=== PATIENT | male | born 1990 | race Caucasian/White ===

== ENCOUNTER 2017-08-31 12:50 | Observation (INO) | payer OTHER ==
--- NOTE | 2017-08-31 14:31 | EDPHY ---
H & P Stated Complaint: abnormal mri/small infarc /cocaine use Time Seen by Provider: 08/31/17 14:11 HPI/ROS: CHIEF COMPLAINT: Headache HISTORY OF PRESENT ILLNESS: The patient is a 27-year-old man who comes to the emergency department from MRI for an abnormality seen there. He abuses cocaine and states that he was using heavily on Monday and Monday. Monday evening he began to have a severe headache and went to [facility] where he had a lumbar puncture performed which was negative. His headache improved with Vicodin he was discharged home. His headache returned again on Monday and has been present ever since. He followed with his primary Dr. Brown today who sent him to Radiology for an MRI. The MRI revealed a tiny right parietal cortical infarct the patient was sent to the emergency department. He states that his headache is somewhat positional but is similar in character to the Monday night before the procedure. He has not had a fever. He denies chest pain or shortness of breath. He does not have any unusual bruising. He denies any IV drug abuse. No focal weakness or numbness or paralysis. REVIEW OF SYSTEMS: Constitutional: denies: chills, fever, recent illness, recent injury EENTM: denies: blurred vision, double vision, nose congestion Respiratory: denies: cough, shortness of breath Cardiac: denies: chest pain, irregular heart rate, lightheadedness, palpitations Gastrointestinal/Abdominal: denies: abdominal pain, diarrhea, nausea, vomiting, blood streaked stools Genitourinary: denies: dysuria, frequency, hematuria, pain Musculoskeletal: denies: joint pain, muscle pain Skin: denies: lesions, rash, jaundice, bruising Neurological: See HPI denies: numbness, paresthesia, tingling, dizziness, weakness Hematologic/Lymphatic: denies: blood clots, easy bleeding, easy bruising Immunologic/allergic: denies: HIV/AIDS, transplant EXAM: GENERAL: Well-appearing, well-nourished and in no acute distress, laughing. HEAD: Atraumatic, normocephalic. EYES: Pupils equal round and reactive to light, extraocular movements intact, sclera anicteric, conjunctiva are normal. ENT: TMs normal, nares patent, oropharynx clear without exudates. Moist mucous membranes. NECK: Normal range of motion, supple without lymphadenopathy or JVD. LUNGS: Breath sounds clear to auscultation bilaterally and equal. No wheezes rales or rhonchi. HEART: Regular rate and rhythm without murmurs, rubs or gallops. ABDOMEN: Soft, nontender, normoactive bowel sounds. No guarding, no rebound. No masses appreciated. BACK: No CVA tenderness, no spinal tenderness, step-offs or deformities EXTREMITIES: Normal range of motion, no pitting or edema. No clubbing or cyanosis. NEUROLOGICAL: Cranial nerves II through XII grossly intact. Normal speech, normal gait. 5/5 strength, normal movement in all extremities, normal sensation PSYCH: Normal mood, normal affect. SKIN: Warm, dry, normal turgor, no visible rashes or lesions. Source: Patient Exam Limitations: No limitations - Personal History Current Tetanus/Diphtheria Vaccine: Yes - Medical/Surgical History Hx Asthma: No Hx Chronic Respiratory Disease: No Hx Diabetes: No Hx Cardiac Disease: No Hx Renal Disease: No Hx Cirrhosis: No Hx Alcoholism: No Hx HIV/AIDS: No Hx Splenectomy or Spleen Trauma: No Other PMH: denies - Family History Significant Family History: No pertinent family hx - Social History Smoking Status: Current every day smoker Alcohol Use: Sober Drug Use: Cocaine Constitutional: Initial Vital Signs Temperature (C) 36.6 C 08/31/17 12:54 Heart Rate 91 08/31/17 12:54 Respiratory Rate 19 08/31/17 12:54 Blood Pressure 134/84 H 08/31/17 12:54 O2 Sat (%) 99 08/31/17 12:54 O2 Delivery Mode Room Air Allergies/Adverse Reactions: No Known Allergies Allergy (Verified 08/31/17 12:53) Home Medications: Medication Instructions Recorded Amphet Asp and D/Amphet [Adderall 10 mg PO BID@1200,1800 08/31/17 10 MG (*)] Dextroamphetamine/Amphetamine 30 mg PO DAILY 08/31/17 [Adderall Xr 30 mg Capsule] Medical Decision Making - Diagnostics Imaging Results: Imaging Impressions Brain MRI 08/31/17 11:15 Impression: Tiny low right parietal cortical infarct. Results called to Renetta Brown MD as requested at noon. Head MRA 08/31/17 15:25 Impression: Negative MRA of the [place]. Neck CTA 08/31/17 15:25 Impression: 1. No carotid or vertebral dissection, flow-limiting stenosis or occlusion. 2. Patent vertebral basilar system. Measurement of carotid stenosis is based on the residual internal carotid diameter with [place] Symptomatic Carotid Endarterectomy Trial (NASCET) based stenosis levels. Imaging: Discussed imaging studies w/ call center consultant Radiologist ED Course/Re-evaluation: 2:30 p.m. I discussed the case with Dr. Taqueria Candelaria from Neurology. He thinks that this is likely vasal spasm but recommends admission and echocardiogram and telemetry and carotid Dopplers. 3:20 p.m. I discussed the case with Dr. Estella Espinoza who agrees to admission. Differential Diagnosis: Partial list of the Differential diagnosis considered include but were not limited to; CVA, cocaine abuse, infection, post LP headache and although unlikely based on the history and physical exam, I also considered trauma, hemorrhage, aneurysm. - Data Points Medications Given: Acetaminophen (Tylenol) 650 mg PO Q4 PRN PRN Reason: Pain, Mild/Fever, Can Take PO Stop: 02/27/18 17:49 Last Admin: 08/31/17 20:19 Dose: 650 mg Amphetamine/Dextroamphetamine (Adderall) 10 mg PO BID@1200,1800 LUKE Stop: 02/27/18 17:59 Last Admin: 08/31/17 18:38 Dose: Not Given Discontinued Medications Hydromorphone HCl (Dilaudid) 1 mg IVP EDNOW ONE Stop: 08/31/17 14:38 Last Admin: 08/31/17 14:54 Dose: 1 mg Metoclopramide HCl (Reglan Injection) 10 mg IVP EDNOW ONE Stop: 08/31/17 14:38 Last Admin: 08/31/17 14:53 Dose: 10 mg Departure - Departure Disposition: [facility] Inpatient Acute Clinical Impression: Cocaine abuse CVA (cerebral vascular accident) Qualifiers: CVA mechanism: unspecified Qualified Code(s): I63.9 - Cerebral infarction, unspecified Condition: Fair
[2017-08-31] MEDS ORDERED: HYDROmorphONE/DILAUDID 1 MG/ML INJ IVP ONE (14:37)
[2017-08-31] MEDS ORDERED: METOCLOPRAMIDE 10 MG/2 ML VIAL IVP ONE (14:37)
--- NOTE | 2017-08-31 15:33 | PDCONSULT ---
Archaeology Professor Note: Recommend full stroke evaluation with TTE, 24 hour tele, CTA head/neck, Labs ( LDL, H1AC), and beginning ASA 81 mg qd (full dose not needed in my opinion as cocaine is the likely cause of stroke). However likely stroke mechanism is cocaine use so primary treatment is avoiding cocaine. Will see patient tonight or tomorrow morning. - Dr. Israel Candelaria, Neurology
[2017-08-31 16:22] LABS: % IMMATURE GRANULYOCYTES 0.4 % (0.0-1.1); ABSOLUTE IMMATURE GRANULOCYTES 0.03 10^3/uL (0.00-0.10); ADD DIFF? NO; ADD MORPH? NO; ADD SCAN? NO; ATYPICAL LYMPHOCYTE FLAG 40 (0-99); FRAGMENT RBC FLAG 0 (0-99); HEMATOCRIT 41.9 % (40.0-51.0); HEMOGLOBIN 14.5 g/dL (13.7-17.5); LEFT SHIFT FLG 0 (0-99); LIPEMIA HEMOLYSIS FLAG 90 (0-99); MEAN CELL HEMOGLOBIN 31.1 pg (27.9-34.1); MEAN CELL HEMOGLOBIN CONCENTR. 34.6 g/dL (32.4-36.7); MEAN CELL VOLUME 89.9 fL (81.5-99.8); MEAN PLATELET VOLUME 9.6 fL (8.7-11.7); PLATELET CLUMPS FLAG 0 (0-99); PLATELET COUNT 268 10^3/uL (150-400); RED BLOOD CELL COUNT 4.66 10^6/uL (4.40-6.38)
[2017-08-31 16:35] LABS: ANION GAP 13 mEq/L (8-16); CALCIUM 8.8 mg/dL (8.5-10.4); CARBON DIOXIDE 25 mEq/l (22-31); CHLORIDE 104 mEq/L (97-110); CREATININE 0.9 mg/dL (0.7-1.3); GLOMERULAR FILTRATION RATE > 60; GLUCOSE 110 mg/dL (70-100); SODIUM 142 mEq/L (134-144)
[2017-08-31] MEDS ORDERED: IOPAMIDOL (ISOVUE 370) 100 ML BTL IV ONE (16:37)
[2017-08-31 16:40] LABS: HEMOGLOBIN A1C 5.3 % (4.0-6.0)
[2017-08-31] MEDS ORDERED: traMADol 50 MG TAB PO PRN (17:50)
[2017-08-31] MEDS ORDERED: ONDANSETRON 4 MG/2 ML VIAL IVP PRN (17:50)
[2017-08-31] MEDS ORDERED: ACETAMINOPHEN 325 MG TAB PO PRN (17:50)
[2017-08-31] MEDS ORDERED: oxyCODONE IR 5 MG TAB PO PRN (17:50)
[2017-08-31] MEDS ORDERED: PROMETHAZINE HCL 25 MG/ML INJ IVP PRN (17:50)
[2017-08-31] MEDS: ADDERALL 10 MG TAB PO SCH (18:38)
--- NOTE | 2017-08-31 19:00 | GHP ---
[f rep st] HISTORY AND PHYSICAL DATE OF ADMISSION: 08/31/2017 CHIEF COMPLAINT: Headache history. Taqueria is a 27-year-old male who uses cocaine, using it very heavily last weekend, both Monday and Monday. Monday night he developed a very severe headache. He went to [facility] emergency room where a lumbar puncture was performed and was negative. He was discharged and followed up with his [facility] doctor today with ongoing, severe, constant, frontal headache. Primary care sent him for an MRI of the brain which is showing a small stroke, and he is now being admitted to observation. H e denies any focal neuro symptoms, including no focal numbness, weakness, vision changes or cranial n erve deficits. PAST MEDICAL HISTORY: Negative. MEDICATIONS: None. ALLERGIES: No known drug allergies. SOCIAL HISTORY: He smokes a half a pack per day. He has been using cocaine for about 1-1/2 years. He does not use it daily. He does not drink alcohol. He has no other drug use. He lives with [facility]. 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 REVIEW OF SYSTEMS: Complete review of systems obtained. Review of systems negative regarding consti tutional, HEENT, GI, pulmonary, cardiovascular, , hematology, skin, muscular endocrine, psych, exce pt for positives and negatives as noted in HPI. FAMILY HISTORY: Negative for stroke. His mom of suicide at age 51. His father is alive and lopez s a history of colon polyps. PHYSICAL EXAMINATION: GENERAL: Well-developed, well-nourished male, in no acute distress. VITAL SI GNS: Temperature is 36.6, pulse 91, blood pressure 134/84, satting 99% on room air. EYES: Normal c onjunctivae. Pupils react to light. ENT: Normal ears and nose. Hearing intact. Normal teeth. Or opharynx moist. NECK: Trachea midline. No thyromegaly. CHEST: Normal effort. LUNGS: Clear to a uscultation bilaterally. CARDIOVASCULAR: Regular rate and rhythm. No murmur. No extremity edema. ABDOMEN: Soft, nontender. No hepatosplenomegaly. SKIN: Warm, dry, intact. No rash. MUSCULOSKEL ETAL: No cyanosis or clubbing. Strength 5/5 upper and lower extremities. NEURO: Cranial nerves in tact. Normal sensation to light touch. PSYCH: Alert and oriented x3. Normal affect. Normal judgm ent. Normal memory. LABORATORY DATA: White count 7.88, hematocrit 41.9, platelets 268. Sodium 142, potassium 4.0, chlor guillermo 104, bicarb 25, BUN 16, creatinine 0.9, glucose 110. MRI of the brain shows a tiny right parietal cortical infarct. This case was discussed with Dr. Fallon rosario, emergency room provider. He has spoken with Dr. Candelaria in consultation. ASSESSMENT AND PLAN: 1. Small right-sided stroke. This is likely due to vasospasm from his cocaine use. Neurology has s een him in consultation. They have ordered an echocardiogram and a CT angiogram of the head and neck . Start him on a daily aspirin. We will check a lipid panel in the morning. 2. Headache. Lumbar puncture recently negative. This will be treated symptomatically. 3. Cocaine abuse. Cessation was advised. 4. Tobacco dependence. Will offer nicotine patch. CODE STATUS: Full. ADMISSION STATUS: Will admit to observation. Anticipate discharge home tomorrow. DEEP VENOUS THROMBOSIS PROPHYLAXIS: He is low risk. /[id number]/MODL
[2017-08-31 20:34] VITALS: RESP 16
[2017-08-31] MEDS: KETOROLAC 30 MG/1 ML SDV IVP PRN (22:02)
[2017-09-01 05:01] LABS: CHOLESTEROL 137 mg/dL (140-200); CHOLESTEROL/HDL RATIO 3.81 RATIO (1.00-4.97); HIGH DENSITY LIPOPROTEIN 36 mg/dL (40-70); LDL/HDL RATIO 1.72 RATIO (1.00-3.64); LOW DENSITY LIPOPROTEIN 62 mg/dL (60-100); NON-HIGH DENSITY LIPOPROTEIN 101 mg/dL (90-129); TRIGLYCERIDE 195 mg/dL (40-150); VERY LOW DENSITY LIPOPROTEINS 39 mg/dL (8-25)
[2017-09-01 08:12] VITALS: BP 125/72; PULSE 78; TEMP 98.6; O2SAT 93
[2017-09-01] MEDS ORDERED: NON-FORMULARY NEW DRUG (Dextroamphetamine/Amphetamine [Adderall Xr 30 Mg Capsule] 30 MG) PO SCH (09:00)
[2017-09-01] MEDS ORDERED: ASPIRIN EC 81 MG TAB PO SCH (09:00)
[2017-09-01] MEDS ORDERED: NICOTINE 14 MG/24 HR PATCH TD SCH (09:00)
[2017-09-01] MEDS: KETOROLAC 30 MG/1 ML SDV IVP PRN (09:26)
--- NOTE | 2017-09-01 12:36 | ASMTCMCOM ---
CM Note CM Note Notes: 09/01/2017 Case Management Note Reviewed chart, spoke with PLASTICS ENGINEERING TEACHER. No case management needs identified d/t pt age, family support, employment status and activity levels prior to admission. There are no PT or OT evals ordered. Case Management d/c poc: home independent when medically stable with follow up as directed. Case Management available if needs change. Date Signed: 09/01/2017 12:36 PM Electronically Signed By:Lynn Childs RN
[2017-09-01] MEDS: ADDERALL 10 MG TAB PO SCH (12:46)
--- NOTE | 2017-09-01 12:59 | NEUROPROG ---
Assessment: [id number] CC: Dr. Estella Cristina consulted neurology for a stroke. Results placed in the EMR for her review. HPI: Pt used cocaine very heavily the weekend prior to admission to [facility]. At the end of the weekend he developed a severe headache so he was seen at an outside ER and had a reported normal spinal tap. His headache persisted so he returned to [facility] ER were a brain MRI showed a small right parietal cortical stroke. His neurologic exam was normal. I initially saw him on 09/01/17. He felt his headache was improving. PMHx: negative Home Meds: none SHx: +tobacco, +cocaine use FHx: colon polyps, suicide, no stroke ROS: Pt denied acute fever, total vision loss, active severe chest pain, respiratory failure, total body severe rash, total bowel/bladder incontinence, psychosis, active seizures, or active bleeding O: VS reviewed General: Alert Eyes: Fundoscopic exam not able to visualize optic disks CV: Heart RRR, no murmur, no carotid bruit Lungs: Clear to auscultation bilaterally, no rhonci or rales Neuro: - Mental: . Oriented x person/place/date . concentration appears normal . speech fluency/comprehension normal . memory appears normal . fund of knowledge appear intact - Cranial Nerves: . II: PERRL, VFFTC . III/IV/: EOMI, no nystagmus, normal smooth pursuits, no Ptosis . V: facial sensation intact to LT . VII: face symmetric to eye closure and smile . VIII: hearing intact to conversation . IX/X: uvula raises symmetrically . XI: SCM 5/5 B/L strength . XII: tongue protrudes midline w/nl strength - Motor: . Tone: normal tone in all 4 extrem . Strength: no pronator drift, strength 5/5 throughout (B/L delt, bic, tri, hand automatic lathe operator, hf/he, df/pf) - Reflexes: B/L bic/BR/patella 2/4 - Sensory: all 4 extrem intact to light touch - Coord: [id number] wnl, TAMEKA wnl, [id number] wnl - Gait: deferred - NIH SS 0 Labs: 08/31/17- CBC wnl, Chem wnl, H1AC 5.3, LDL 62 Rads: 08/31/17- Brain MRI w/o con: tiny low R parietal cortical infarct (I personally visualized the image on 09/01/17) 08/31/17- Brain MRA: unremarkable 08/31/17- CTA neck: unremarkable Assessment: 1. Small Right Cortical Parietal stroke, Headache on 08/31/17: Likely from vasospasm from recent cocaine use. Will complete stroke evaluation to exclude alternative causes but CTA neck and brain MRA unremarkable. Plan: - Blood pressure < 140/90 - H1AC < 7.0 (5.3) - LDL < 70 (62) - Begin Aspirin 81 mg qd and discharge on this medication - TTE - 24 hour telemetry - Cocaine cessation is critical - Recommend migaine prophylaxis medication with Verapamil 100 mg qhs (also has anti-vasospasm effect, pt counseled on risk of low blood pressure) - F/U in neurology clinic 1-4 weeks after discharge If telemetry and TTE are unremarkable than patient can discharge from neurology perspective and f/u with hi outpatient Objective: Vital Signs Temp Pulse Resp BP Pulse Ox 37.0 C 78 16 125/72 H 93 09/01/17 08:00 09/01/17 08:00 09/01/17 08:00 09/01/17 08:00 09/01/17 08:00 Laboratory Results 08/31/17 16:08 08/31/17 16:08 08/31/17 09/01/17 09/02/17 05:59 05:59 05:59 Intake Total 1650 Output Total 300 Balance 1350 Allergies/Adverse Reactions: No Known Allergies Allergy (Verified 08/31/17 12:53)
--- NOTE | 2017-09-01 13:23 | ECHO ---
[email or web address] [address] [address] Main: [phone] Fax: [email or web address] Echocardiogram Name: DOMONIQUE DOBBS MR#: [id number] Study Date: 09/01/2017 Study Time: 08:56 AM Date of : 1990 Age: 27 year(s) Height: 185.4 cm (73 in.) Weight: 77.11 kg (170 lb.) BSA: 2.01 m2 Gender: Male Examination: Echo with Agitated Saline Indication: ischemic stroke; bubble study; h/o cocaine abuse Image Quality: Adequate Contrast: I.V. dose of agitated saline Requested by: Domonique Bari BP: / Heart Rate: Rhythm: Normal sinus rhythm Indication: ischemic stroke; bubble study; h/o cocaine abuse Procedure Staff Production Line Assembler: Kalpana Parks Reading Physician: Fredi Gonzalez Requesting Provider: Conclusions: Normal global systolic LV function. EF is 56 %. No regional wall motion abnormality. Normal diastolic LV function. Normal RV function. An agitated saline study was performed and was negative for intracardiac shunting. Possible 2-3 bubble seen in the left side of the heart after bubble study both at rest and valsalva. . Trivial to mild mitral regurgitation. There is no aortic valve regurgitation. Trivial to mild tricuspid valve regurgitation. Mild pulmonic valve regurgitation is noted. Normal size aortic root measuring 2.8 cm. Normal size ascending aorta measuring 2.6 cm. There is greater marlen 50% respiratory excursion. Measurements: Chambers Valvular Assessment AV/MV Valvular Assessment TV/PV Normal Normal Normal Name Value Range Name Value Range Name Value Range Ao Susana (MM): 2.8 cm (2.2 cm-3.7 AV Vmax: 1.17 m/s (1 m/s-1.7 TR Vmax: 2.15 mm/s ( - ) cm) m/s) TR PGmax: 18 mmHg ( - ) IVSd (2D): 0.7 cm (0.6 cm-1.1 AV maxP mmHg ( - ) syst. PAP: 23 mmHg ( - ) cm) LVOT Vmax: 1.00 m/s (0.7 m/s-1.1 PV Vmax: 0.87 m/s (0.6 m/s-0.9 LVDd (2D): 5.3 cm (4.2 cm-5.9 m/s) m/s) cm) MV E Vmax: 0.96 m/s ( - ) PV PGmax: 3 mmHg ( - ) LVDs (2D): 3.8 cm (2.1 cm-4 MV A Vmax: 0.40 m/s ( - ) cm) MV E/A: 2.40 ( - ) LVPWd (2D): 1.0 cm (0.6 cm-1 cm) Patient: DOMONIQUE DOBBS Study Date: 09/01/2017 Page 1 of 2 08:56 AM LVEF (BP): 56 % (>=55 %) RVDd(2D): 2.9 cm (1.9 cm-3.8 cmmm) Continued Measurements: Chambers Valvular Assessment AV/MV Valvular Assessment TV/PV Name Value Name Value Name Value LADs Lon.4 cm MV DecTime: 130 m/s CVP (est.): 5 mmHg LA Area: 17.8 cm2 MV E/E' Septal: 7.30 LA Volume: 46 ml MV E/E' Lateral: 6.10 LA Volume Index: 22.9 ml/m2 RA Area: 12.7 cm2 Additional Vessels Name Value Ao Ascendin.6 cm Findings: Left Ventricle: Normal size left ventricle. No LV hypertrophy. Normal global systolic LV function. EF is 56 %. No regional wall motion abnormality. Normal diastolic LV function. Right Ventricle: Normal size right ventricle. Normal RV function. Left Atrium: The left atrium is normal in size. An agitated saline study was performed and was negative for intracardiac shunting. Possible 2-3 bubble seen in the left side of the heart after bubble study both at rest and valsalva. . Right Atrium: The right atrium is normal in size. Mitral Valve: The mitral valve is normal in appearance and function. Trivial to mild mitral regurgitation. No mitral stenosis is present. Aortic Valve: The aortic valve is normal in appearance and function. The aortic valve is tri-leaflet. There is no aortic valve regurgitation. No aortic valve stenosis is present. Tricuspid Valve: The tricuspid valve is normal in appearance and function. Trivial to mild tricuspid valve regurgitation. The pulmonary artery pressure is normal. Right ventricular systolic pressure measures 23mmHg. Pulmonic Valve: The pulmonic valve is normal in appearance and function. Mild pulmonic valve regurgitation is noted. Aorta: The aorta is normal. Normal size aortic root measuring 2.8 cm. Normal size ascending aorta measuring 2.6 cm. IVC: The IVC is normal sized. There is greater marlen 50% respiratory excursion. Pericardium: No pericardial effusion. (No Signature Object) Patient: DOMONIQUE DOBBS Study Date: 09/01/2017 Page 2 of 2 08:56 AM [id number]
--- NOTE | 2017-09-01 17:34 | GDS ---
[f rep st] DISCHARGE SUMMARY DISCHARGE DIAGNOSES: 1. Acute small right cortical parietal stroke. 2. Triglyceridemia. STUDIES AND PROCEDURES DONE: 1. MRI of the brain. 2. MRI of the head. 3. CT angio of the neck. 4. Echocardiogram. CONSULTATIONS: Dr. Candelaria of Neurology. PHYSICAL EXAM: GENERAL: The patient is alert. VITAL SIGNS: Afebrile at 37, pulse is 78, respirato ry rate 16, blood pressure is 125/72. He is saturating 93% on room air. I have seen and evaluated t he patient on the day of discharge. HOSPITAL COURSE: The patient is a 27-year-old male who presented to the emergency room with complain ts of headache. He was evaluated and diagnosed with a small right cortical parietal stroke. During this hospitalization, he had a thorough evaluation. The patient's stroke was likely a result of his heavy cocaine use. He has received education regarding cocaine cessation as well as tobacco cessatio n. I have educated him regarding his elevated triglycerides and diet changes. He will continue with his primary care physician, Dr. Renetta Brown, and continue on his previously prescribed home medic ations. I have educated the patient at length that he needs to return to the emergency room if his s ymptoms reoccur or he develops any new symptoms. He does understand this and is in agreement with is plan. /[id number]/MODL
--- NOTE | 2017-09-02 12:35 | ASDISCHSUM ---
Discharge Information Plan Status:Home with No Needs Medically Cleared to Leave: Discharge Date:09/01/2017 03:30 PM CM D/C Disposition:Home, Routine, Self-Care ADT D/C Disposition:Home, Routine, Self-Care Projected Discharge Date:09/01/2017 03:30 PM Transportation at D/C:Friend Discharge Delay Reason: Follow-Up Date:09/01/2017 03:30 PM Discharge Slot: Final Diagnosis: Placement Information Patient Contact Information Contact Name:YESIKA Relationship:Mother Address:[address] City:[place] Alternate Phone: [facility]/Zip Code:[place] [address] Email: Financial Information Financial Class:HMO and PPO Plans Primary Plan Desc:SARTHAK MALDONADO PPO Primary Plan Number:[id number] Secondary Plan Desc: Secondary Plan Number: Assessment Information LACE LACE Acuity / Level of Care Answers: Was the patient admitted to hospital via the emergency department? Yes: Emergency dept visits in Answers: 1 last 6 months Score: 4 Date Signed: 08/31/2017 04:23 PM Electronically Signed By:Lizbeth Flores RN [facility] CM Progress Note CM Note CM Note Notes: 09/01/2017 Case Management Note Reviewed chart, spoke with SENIOR LINUX ADMINISTRATOR. No case management needs identified d/t pt age, family support, employment status and activity levels prior to admission. There are no PT or OT evals ordered. Case Management d/c poc: home independent when medically stable with follow up as directed. Case Management available if needs change. Date Signed: 09/01/2017 12:36 PM Electronically Signed By:Lynn Childs RN Intervention Information
== END 2017-09-01 15:30 | disposition home or self-care (01) ==
LOC: F3N 17:59
PROVIDERS: ADMIT Internal Medicine; ATTEND Internal Medicine
DX: I63.9 Cerebral infarction, unspecified (principal); F14.188 Cocaine abuse with other cocaine-induced disorder; E78.1 Pure hyperglyceridemia
CPT/HCPCS: 70498; 70544; 70551; 92523; 93306; 97165; G0378; 96374; J1170; J1885; J2765; Q9967